=== PATIENT | male | born 1965 | race Caucasian/White ===

== ENCOUNTER 2022-01-01 07:29 | Outpatient (CLI) | payer OTHER, SELFPAY ==
[2022-01-01 09:19] LABS: Albumin* 4.4 g/dL (3.3-5.0); Chloride* 102 mmol/L (96-114)
[2022-01-01 09:20] LABS: Potassium* 4.7 mmol/L (3.6-5.1); Sodium* 137 mmol/L (135-149)
[2022-01-01 09:22] LABS: Alanine Aminotransferase* 28 U/L (4-50); Alkaline Phosphatase* 62 U/L (40-150); Aspartate Amino Transferase* 33 U/L (12-35); Bilirubin Total* 0.5 mg/dL (0.1-1.5); Blood Urea Nitrogen* 16 mg/dL (7-30); Carbon Dioxide* 26 mmol/L (20-32); Cholesterol* 212 mg/dL (90-199); Creatinine* 0.9 mg/dL (0.5-1.5); Estimated Glomerular Filt Rate 101 ml/min; Glucose* 94 mg/dL (60-115); Total Protein* 7.1 g/dL (6.0-8.3)
[2022-01-01 09:23] LABS: Calcium* 9.5 mg/dL (8.4-10.6); HDL Cholesterol* 58 mg/dL (>=40); LDL Cholesterol Calculated 129 mg/dL (<100); Triglycerides* 126 mg/dL (40-149)
== END 2022-01-01 07:30 | disposition home or self-care (01) ==
LOC: NFLDREF 07:33
PROVIDERS: PCP Family Medicine; Visit Provider Family Medicine
DX: Z00.00 Encounter for general adult medical examination without abnormal findings (principal); E78.5 Hyperlipidemia, unspecified; I10 Essential (primary) hypertension
CPT/HCPCS: 80053; 80061

== ENCOUNTER 2022-02-14 08:28 | Outpatient (CLI) | payer OTHER, SELFPAY | END 2022-02-14 08:29 | disposition home or self-care (01) | PROVIDERS: PCP Family Medicine; Visit Provider Internal Medicine | DX: Z12.11 Encounter for screening for malignant neoplasm of colon (principal); K64.8 Other hemorrhoids; K57.30 Diverticulosis of large intestine without perforation or abscess without bleeding | CPT/HCPCS: 45378; J2250; J3010 ==

== ENCOUNTER 2023-01-01 07:43 | Outpatient (CLI) | payer MEDICAID, SELFPAY ==
--- OUTSIDE RECORDS SUMMARY | 2023-01-02 11:40 | XMS_ITS | Continuity of Care Document ---
Author Name Unknown Organization [facility] Address [address] [address] [place] [address] Phone Care Team Providers Care Warp Tier Name Role Phone Mary Jane Acuña Unavailable Unavailable Allergies, Adverse Reactions, Alerts Substance Reaction Status Criticality AMOXICILLIN TRIHYDRATE Rash Active No In formation POTASSIUM CLAVULANATE Rash Active No Inf ormation amoxicillin Rash Active No Information Medications Medication Instructions Dosage Effective Dates (start - stop) Status Comments balsalazide 750 mg capsule take 2 Capsule by ORAL route 2 times every day 1500 MG - Active FISH OIL (unknown strength) take 1 capsule by oral route every day Not Available - Active lisinopril 10 mg tablet take 1 tablet by oral route every day 10 MG - Active Aspirin Low Dose 81 mg Tab, Delayed Release every day - Active FISH OIL every day - Active Multiple Vitamin Tab every day - Active KALIE-CITRATE (unknown strength) every day Not Available - Active balsalazide 750 mg capsule take 2 Capsule by ORAL route 2 times every day 1500 MG - No Longer Active Needs labs Procedures Procedure Date Routine Serum Collection Established Level 3 Routine Serum Collection Established Level 3 Routine Serum Collection Urea Nitro; Norberto Creatinine; Bld Established Level 2 Routine Serum Collection Urea Nitro; Norberto Creatinine; Bld Virtual Visit E&m Estab 5-9 Min 020 Offic/outpt E&m Estab Low-mod 9 Routine Serum Collection Urea Nitro; Norberto Creatinine; Bld Offic/outpt E&m New Mod Sever 8 Offic/outpt E&m Estab Low-mod 7 Routine Serum Collection Advance Directives Directive Yes / No Effective Date File Name No Information Encounters Encounter Description Practice Location Reason(s) For Visit Diagnoses Date Provider Providers Copied on Encounter [facility], [address] [address], [place], [id number], [place] tel:[phone] [facility] No Information 3 Arturo Hinton. [address] [place] [address], [id number], [place]. tel:[phone] [facility], [address] [address], [place], [id number], [place] tel:[phone] [facility] Ulcerative (chronic) proctitis without complications 3 Arturo Hinton. [address], [id number], [place]. tel:[phone] Referring Provider: Referral Self. [facility], [address] [address], [place], [id number], [place] tel:[phone] [facility] No Information 3 Arturo Hinton. [address], [id number], [place]. tel:[phone] Established Level 3 [facility], [address] [address], [place], [id number], [place] tel:[phone] [facility] GI Symptoms or Concerns (chief complaint) Additional Narrative (chief complaint) Ulcerative (chronic) proctitis without complications 3 Arturo Hinton. [facility] [address], [id number], [place]. tel:[phone] Referring Provider: Referral Self. [facility], [address] [address], [place], [id number], [place] tel:[phone] [facility] No Information 3 Mahin Bagley. [address] [facility], [address], [id number], [place]. tel:[phone] [facility], [address] [address], [place], [id number], [place] tel:[phone] [facility] Ulcerative (chronic) proctitis without complications 2 [facility] Mary Jane. [address], [id number], [place]. tel:[phone] Referring Provider: Referral Self. Established Level 3 [facility], [address] [address], [place], [id number], [place] tel:[phone] [facility] GI Symptoms or Concerns (chief complaint) Ulcerative (chronic) proctitis without complications 2 [facility] Mary Jane. [address], [id number], [place]. tel:[phone] Referring Provider: Referral Self. [facility], [address] [address], [place], [id number], [place] tel:[phone] [facility] No Information 2 Mahin Bagley. [address], [id number], [place]. tel:[phone] [facility], [address] [address], [place], [id number], [place] tel:[phone] [facility] Ulcerative (chronic) proctitis without complications 1 [facility] Mary Jane. [address], [id number], [place]. tel:[phone] Referring Provider: Referral Self. Established Level 2 [facility], [address] [address], [place], [id number], [place] tel:[phone] [facility] GI Symptoms or Concerns (chief complaint) Ulcerative proctitis without complication 1 Serenitytrgreg Hinton. [address] [facility], [address], [id number], [place]. [phone] Referring Provider: Referral Self. [facility], [address] [address], [place], [id number], [place] tel:[phone] [place] [address] No Information 1 Sandeep Conde. [address] [place] [address], [id number], [place]. tel:[phone] [facility], [address] [address], [place], [id number], [place] tel:[phone] [facility] Ulcerative proctitis without complication 0 Edstrgreg Hinton. [address] [place] [address], [id number], [place]. tel:[phone] Referring Provider: Referral Self. Virtual Visit E&m Estab 5-9 Min [facility], [address] [address], [place], [id number], [place] tel:[phone] [facility] GI Symptoms or Concerns (chief complaint) Ulcerative proctitis without complication 0 Arturo Hinton. [address] [place] [address], [id number], [place]. tel:[phone] Referring Provider: Referral Self. [facility], [address] [address], [place], [id number], [place] tel:[phone] [facility] No Information 0 Sandeep Conde. [address] [place] [address], [id number], [place]. tel:[phone] Offic/outpt E&m Estab Low-mod [facility], [address] [address], [place], [id number], [place] tel:[phone] [facility] Comment (chief complaint) Ulcerative proctitis without complicationDi etary counseling and surveillance 9 Edsjasmin Hinton. [address] [place] [address], [id number], [place]. tel:[phone] Referring Provider: Dani Gary MD, [address] [place], [address]. tel:[phone] Offic/outpt E&m New Mod Sever [facility], [address] [address], [facility] [place], [id number], [place] tel:[phone] [facility] GI Symptoms or Concerns (chief complaint) Ulcerative proctitis without complicationDi etary counseling and surveillanceEl evated blood-pressure reading, w/o diagnosis of htn Arturo Hinton. [address] [place] [address], [id number], [place]. tel:[phone] Referring Provider: Referral Self. Offic/outpt E&m Estab Low-mod [facility], [address] [address], [facility] [place], [id number], [place] tel:[phone] [facility] Ulcerative Proctitis 7 No Information [facility], [address] [address], [facility] [place], [id number], [place] tel:[phone] [facility] No Information 7 Milton Aguayo. [address] [place] [address], [id number], [place]. tel:[phone] [facility], [address] [address], [facility] [place], [id number], [place] tel:[phone] [facility] No Information 6 Milton Aguayo. [address] [place] [address], [id number], [place]. tel:[phone] Family History Family Member Type Diagnosis Age At Onset Daughter Problem (finding) Alive and well Mother Problem (finding) Thyroid disorder Father Problem (finding) Brother Problem (finding) Alive and well Immunizations Vaccine Date Status Comments SARS-COV-2 (COVID-19) vaccin e, mRNA, spike protein, LNP, bivalent, preservative free, 50 mcg/0.5 mL or 25 mcg/0.25 mL dose administered Note: [facility] bi-direct ional interface ; Source: Other Registry Influenza, injectable, Madin Trina Canine Kidney, preservative free, quadrivalent administered Note: [facility] bi- directional interface ; Source: Other Registry SARS-COV-2 (COVID-19) vaccin e, mRNA, spike protein, LNP, preservative free, 100 mcg/0.5mL dose or 50 mcg/0.25mL dose administered Note: [facility] bi -directional interface ; Source: Other Registry SARS-COV-2 (COVID-19) vaccin e, mRNA, spike protein, LNP, preservative free, 100 mcg/0.5mL dose or 50 mcg/0.25mL dose administered Note: [facility] bi -directional interface ; Source: Other Registry Afluria Qd administered Note: [facility] bi-directional interface ; Source: Other Registry SARS-COV-2 (COVID-19) vaccin e, mRNA, spike protein, LNP, preservative free, 100 mcg/0.5mL dose or 50 mcg/0.25mL dose administered Note: [facility] bi -directional interface ; Source: Other Registry SARS-COV-2 (COVID-19) vaccin e, mRNA, spike protein, LNP, preservative free, 100 mcg/0.5mL dose administered Note: [facility] bi-direct ional interface ; Source: Other Registry SARS-COV-2 (COVID-19) vaccin e, mRNA, spike protein, LNP, preservative free, 100 mcg/0.5mL dose or 50 mcg/0.25mL dose administered Note: [facility] bi -directional interface ; Source: Other Registry SARS-COV-2 (COVID-19) vaccin e, mRNA, spike protein, LNP, preservative free, 100 mcg/0.5mL dose administered Note: [facility] bi-direct ional interface ; Source: Other Registry Influenza administered Note: [facility] bi-d irectional interface ; Source: Other Registry zoster vaccine recombinant administered N ote: [facility] bi-directional interface ; Source: Other Registry Seasonal, quadrivalent, recombinant, injectable influenza vaccine, preservative free administered Note: [facility] bi-direct ional interface ; Source: Other Registry zoster vaccine recombinant administered N ote: [facility] bi-directional interface ; Source: Other Registry Afluria Qd administered Note: [facility] bi-directional interface ; Source: Other Registry Afluria Qd administered Note: [facility] bi-directional interface ; Source: Other Registry Fluzone Quad 6mo or older administered Note: [facility] bi-direct ional interface ; Source: Other Registry Engerix-B administered Note: [facility] bi-d irectional interface ; Source: Other Registry Influenza, injectable, Madin Hollister Canine Kidney, preservative free, quadrivalent administered Note: [facility] bi- directional interface ; Source: Other Registry Influenza, injectable, quadrivalent, preservative free, 3 yrs or older administered Source: Other Provid er zoster vaccine, live administered Note: [facility] bi-directional interface ; Source: Other Registry Engerix-B administered Note: [facility] bi-d irectional interface ; Source: Other Registry Influenza administered Note: [facility] bi-d irectional interface ; Source: Other Registry tetanus toxoid, reduced diphtheria toxoid, and acellular pertussis vaccine, adsorbed administered Note: [facility] b i-directional interface ; Source: Other Registry Influenza, seasonal, injectable administe red Note: [facility] bi- directional interface ; Source: Other Registry Influenza, seasonal, injectable administe red Note: [facility] bi- directional interface ; Source: Other Registry Influenza, seasonal, injecta ble, preservative free administered Note: [facility] bi-direct ional interface ; Source: Other Registry Engerix-B administered Note: [facility] bi-d irectional interface ; Source: Other Registry measles, mumps and rubella v irus vaccine administered Note: [facility] bi-direct ional interface ; Source: Other Registry Payers Payer name Insurance type Covered constitution party ID Russell dickson(s) Cee Individual Family [id number] Social History Type Description Quantity Date Captured Comments Alcohol Use Details Unknown Caffeine Use Details Unknown Tobacco Use Status No Information Smoking Status No Information Sex Male Chief Complaint And Reason For Visit No Information Reason For Referral Reason For Referral No Information Plan Of Treatment Date Type Action Status Goal Lifestyle education regardin g diet completed Goal Lifestyle education regardin g diet completed Referral Ordered: Colonoscopy Appointment date/timeframe: 04/09/2021 ordered Referral Ordered: BUN Appointment date/timeframe: 10/07/2017 ordered Referral Ordered: Creatinine Appointment date/timeframe: 10/07/2017 ordered Appointment Shawn Vail BOOKED History Of Present Illness Encounter Date Complaint History Of Prese nt Illness Additional Narrative This is a p samreenstephanie 57-year-old male presenting via virtual visit for routine ulcerative proctitis followup.The patient was diagnosed with ulcerative proctitis in approximately 1993. He has been on sulfasalazine in the past, but for the majority of his disease course, he has been on oral mesalamine medications. Previously on Asacol and Delzicol. Most recently, he has been asymptomatic on balsalazide 2 tablets twice a day (3 g a day). His last virtual visit was in October 2021, at which time he was asymptomatic. He has not had any flares since his last visit. He currently has 1 to 2 formed bowel movements a day. He denies any rectal urgency or abdominal pain. He will note very rare instances of small amounts of blood on wiping after a bowel movement. This is stable. He denies any unintentional weight loss.We discussed the need for colonoscopy for screening purposes at his last visit but he had reservations due to cost/insurance coverage. He ended up scheduling at [facility] and had this done by an outside provider in January 2022. I was able to view the results which showed internal hemorrhoids, sigmoid diverticulosis, but otherwise normal. The patient was initially followed through our office at the time of his diagnosis, but moved to [place] after 2006 and was under the care of Dr. Luo. Colonoscopy through Dr. Luo in March 2011 was normal endoscopically and on random colon biopsies, no evidence of dysplasia. He has no family history of colon polyps or colon cancer. Colonoscopy from 1993 showed mild inflammation continuously from the rectum to 20 cm.HEALTH MAINTENANCEInfluenza vaccine - receives annually. COVID-19 vaccine - completed initial vaccine series in March 2020, booster in December 2020, 2nd booster in July this year.Hepatitis B vaccine - completed in March 2017.Shingrix - the patient reports receiving Shingrix vaccine in the past. He had a dose of Zoster vaccine in August 2018 and November 2018.Pneumococcal vaccines - has not received. Recommended to discuss with PCP office. Tobacco use - none.NSAIDs - none. He is on a baby aspirin a day.Bone health - the patient has never required steroids.Screening colonoscopy - due in January 2032. GI Symptoms or Concerns GI Symptoms or Concerns This is a pleasant 56-year-old male presenting via virtual visit for routine ulcerative proctitis followup.The patient was diagnosed with ulcerative proctitis in approximately 1993. He has been on sulfasalazine in the past, but for the majority of his disease course, he has been on oral mesalamine medications. Previously on Asacol and Delzicol. Most recently, he has been asymptomatic on balsalazide 2 tablets twice a day (3 g a day).His last virtual visit was in August 2020, at which time he was asymptomatic. He has not had any flares since his last visit. He currently has 1 to 2 formed bowel movements a day. He denies any rectal urgency or abdominal pain. He will note very rare instances of small amount of blood on wiping after a bowel movement. This is stable. He denies any unintentional weight loss.The patient was initially followed through our office at the time of his diagnosis, but moved to [place] after 2006 and was under the care of Dr. Luo. Last colonoscopy through Dr. Luo in March 2011 was normal endoscopically and on random colon biopsies, no evidence of dysplasia. He has no family history of colon polyps or colon cancer. Colonoscopy from 1993 showed mild inflammation continuously from the rectum to 20 cm.HEALTH MAINTENANCEInfluenza vaccine - receives annually. He has not received this fall yet.COVID-19 vaccine - completed initial vaccine series in March 2020, booster in December 2020, 2nd booster in July this year.Hepatitis B vaccine - completed in March 2017.Shingrix - the patient reports receiving Shingrix vaccine in the past. He had a dose of Zoster vaccine in August 2018 and November 2018.Pneumococcal vaccines - has not received.Tobacco use - none.NSAIDs - none. He is on a baby aspirin a day.Bone health - the patient has never required steroids.Screening colonoscopy - due in March 2021. The patient had planned on scheduling, but after discussing with insurance company and/or billing department, he was concerned that he would have a colonoscopy bill for the full amount of the procedure if the diagnosis code was changed for some reason to diagnostic if anything was found. GI Symptoms or Concerns This is a pleasant 55-year-old male presenting via virtual visit today for routine ulcerative proctitis followup.The patient was diagnosed with ulcerative proctitis in approximately 1993. He has been on sulfasalazine in the past, but for the majority of his disease course, he has been on oral mesalamine medications. He has previously been on Asacol and Delzicol. Most recently, he has been asymptomatic on balsalazide. He takes 2 tablets twice a day, 3 g a day.His last virtual visit was in August 2019, at which time he was asymptomatic. He has not had any flare-up since his last visit. He typically has 1 to 2 formed bowel movements a day. He denies any abdominal pain, rectal bleeding, rectal urgency, or unintentional weight loss.The patient was initially followed through our office at the time of his diagnosis, but moved to [place] after 2006 and was under the care of Dr. Luo. His last colonoscopy through Dr. Luo in March 2011 was normal endoscopically and o GI Symptoms or Concerns This is a 54-year-old male presenting for a virtual visit today for routine ulcerative proctitis followup. He confirmed that he was in a private place and provided verbal consent for our visit. Total time spent on medical discussion was 4 minutes.Patient was diagnosed with ulcerative proctitis in approximately 1993. He has been on sulfasalazine in the past, but for the majority of his disease course, he has been on mesalamine medications. He has previously been on Asacol and Delzicol. Most recently, he has been asymptomatic on balsalazide. He takes 2 tablets twice a day, 3 g a day.His last office visit was in August of 2018, at which time he was asymptomatic. He has not had any flare-up since his last visit. He typically has 1 bowel movement a day that is formed. He denies any abdominal pain, rectal bleeding, rectal urgency, or unintentional weight loss.The patient was initially followed through our office at the time of his diagnosis, but moved to [place] after Comment This is a [facility] 53-year-old male presenting to clinic today for routine ulcerative colitis followup.The patient was diagnosed with ulcerative proctitis in approximately 1993. He has been on sulfasalazine in the past, but for the majority of his disease course, he has been on mesalamine medications. He has previously been on Asacol and Delzicol. However, over the last 3 years or so, he has been asymptomatic on balsalazide. He takes 2 tablets twice a day, 3 g a day.He remains asymptomatic today. He denies any flare ups since his last office visit in September 2017. He typically has 1 to 2 formed bowel movements a day. He denies any rectal bleeding, abdominal pain, rectal urgency, or unintentional weight loss.The patient initially followed through our office, moved to [place] after 2006 and was under the care of Dr. Luo. His last colonoscopy was in 2011 and was normal endoscopically and on random colon biopsies without any evidence of dysplasia. He has no family GI Symptoms or Concerns This is a pleasant 52-year-old male presenting to clinic today to reestablish care for ulcerative proctitis.The patient had been following in our office in the past. He was last seen in our office in 2006, at which time he was on a low dose of Asacol and was asymptomatic. He reports moving to [place], [place] and transferred care to Dr. Luo. He reports being asymptomatic while in his care. He had been on Delzicol previously, but approximately 2 years ago, was switched over to balsalazide. He currently takes two 750 mg tablets twice a day. He reports his last colonoscopy was through Dr. Luo approximately 6 to 7 years ago without any significant findings.The patient states on his current dose of balsalazide, he has 1 formed bowel movement a day. He denies any abdominal pain, unintentional weight loss, rectal urgency, or rectal bleeding other than very rare instances of blood on wiping. He uses Advil on an as-needed basis, but otherwise denies NSAID use. He is o Functional Status Date Functional Assessmen t No Information Instructions Date Instruction Additional Infor vishal Lifestyle education regarding di et Related to Dietary counseling and surveillance Lifestyle education regarding di et Related to Dietary counseling and surveillance Assessments Type Assessment Date No Information Patient Care Teams Name Effective Dates (start - stop) Status Members No Information
== END 2023-01-01 07:44 | disposition home or self-care (01) ==
LOC: NFLDREF 01-02 11:38
PROVIDERS: PCP Family Medicine; Referring Provider Family Medicine; Visit Provider Family Medicine
DX: Z00.00 Encounter for general adult medical examination without abnormal findings (principal); E78.5 Hyperlipidemia, unspecified; Z12.5 Encounter for screening for malignant neoplasm of prostate
CPT/HCPCS: 80053; 80061; 84153

== ENCOUNTER 2024-02-23 07:46 | Outpatient (CLI) | payer OTHER, SELFPAY | END 2024-02-23 07:47 | disposition home or self-care (01) | LOC: NFLDREF 02-26 05:21 | PROVIDERS: PCP Family Medicine; Referring Provider Family Medicine; Visit Provider Family Medicine | DX: E78.5 Hyperlipidemia, unspecified (principal); Z12.5 Encounter for screening for malignant neoplasm of prostate | CPT/HCPCS: 80053; 80061; G0103 ==